=== PATIENT | male | born 1960 | race Caucasian/White ===

== ENCOUNTER 2022-10-23 18:30 | Emergency (ER) | payer MEDICAID ==
[~2022-10-23] VITALS: Ht 165.1 cm; Wt 77.1 kg
[2022-10-23 20:52] VITALS: BP 145/85
== END 2022-10-23 22:15 | disposition home or self-care (01) ==
LOC: ER 18:34
DX: B34.9 Viral infection, unspecified (principal); I10 Essential (primary) hypertension; E11.9 Type 2 diabetes mellitus without complications; Z88.8 Allergy status to other drugs, medicaments and biological substances
CPT/HCPCS: 71045-TC

== ENCOUNTER 2023-06-05 17:51 | Emergency (ER) | payer MEDICAID ==
[~2023-06-05] VITALS: Ht 165.1 cm; Wt 80.7 kg
[2023-06-05 18:06] VITALS: BP 139/79; TEMP 99.5; O2SAT 98
[2023-06-05] MEDS ORDERED: ACETAMINOPHEN ES 500 MG TABLET PO ONE (18:30)
[2023-06-05] MEDS ORDERED: ACETAMINOPHEN 325 MG TABLET PO ONE (18:30)
[2023-06-05] MEDS ORDERED: dexaMETHasone SOD PHOSPHATE 10 MG/ML VIAL ONE (18:52)
[2023-06-05] MEDS ORDERED: ACETAMINOPHEN ES 500 MG TABLET ONE (18:52)
[2023-06-05] MEDS ORDERED: dexaMETHasone SOD PHOSPHATE 4 MG/ML VIAL IM ONE (19:00)
[2023-06-05] MEDS ORDERED: NAPR-1164 PO (19:22)
[2023-06-05] MEDS ORDERED: CETI1TAB9 PO (19:22)
== END 2023-06-05 19:41 | disposition home or self-care (01) ==
LOC: ER 17:51
DX: B34.9 Viral infection, unspecified (principal); I10 Essential (primary) hypertension; E11.9 Type 2 diabetes mellitus without complications; Z20.822 Contact with and (suspected) exposure to COVID-19; Z88.1 Allergy status to other antibiotic agents
CPT/HCPCS: 99284; 71045; 87426; 96372; 87804 ×2; J1100; C9803